=== PATIENT | male | born 1945 | race Caucasian/White ===

== ENCOUNTER 2019-09-05 06:02 | Inpatient (IN) ==
[2019-09-03 15:49] LABS: Appearance,Urine CLEAR; Bilirubin,Urine NEG (NEG); Color,Urine YELLOW; Culture Indicated,Urine NO; Glucose,Urine (UA) NEGATIVE (NEG); Ketones,Urine 5/TR mg/dL (NEG); Leukocyte Esterase,Urine NEG /uL (NEG); Nitrate,Urine NEG (NEG); Protein,Urine NEG (NEG); Specific Gravity,Urine 1.031 (1.000-1.035); Urine Blood NEG mg/dL (<0.03); Urobilinogen,Urine NEG (NEG)
[2019-09-03 18:35] LABS: Basophils # (Auto) 0 K/mcL (0.0-0.3); Basophils % (Auto) 0.5 % (0.0-2.0); Eosinophils # (Auto) 0.2 K/mcL (0.0-0.7); Eosinophils % (Auto) 3.5 % (0.0-7.0); Granulocytes % (Auto) 70.8 % (38.0-78.0); Hematocrit 44.4 % (41.0-55.0); Hemoglobin 14.5 g/dL (13.5-16.5); Lymphocytes # (Auto) 1.1 K/mcL (1.5-4.8); Lymphocytes % (Auto) 18.3 % (15.5-49.0); Mean Cell Volume 95.5 fL (80.0-100.0); Mean Corpuscular HGB Conc 32.6 g/dL (31.0-36.0); Mean Platelet Volume 8.6 fL (7.4-10.4); Monocytes # (Auto) 0.4 K/mcL (0.1-0.9); Monocytes % (Auto) 6.9 % (1.0-12.0); Platelet Count 271 K/mcL (140-440); RBC 4.65 M/mcL (4.50-5.90)
[2019-09-03 18:42] LABS: INR 0.9 (0.9-1.1); Prothrombin Time 12.2 sec (11.9-14.5)
[2019-09-03 19:16] LABS: Blood Urea Nitrogen 29 mg/dl (8-23); Calcium 9.5 mg/dl (8.6-10.4); Carbon Dioxide 26 mmol/L (22-30); Chloride 103 mmol/L (96-108); Glomerular Filtration Rate 89; Glucose 82 mg/dL (70-105)
[~2019-09-05 06:02] MED LIST: CELECOXIB 200 MG CAPSULE PO SCH; PREGABALIN 75 MG CAPSULE PO SCH; ceFAZolin 2 GM in DEXTROSE 5% IN WATER 50 ML IV SCH; oxyCODONE 10 MG TAB.ER.12H PO SCH
[2019-09-05] MEDS ORDERED: DEXAMETHASONE 10 MG/ML VIAL IV ONE (09:30)
[2019-09-05] MEDS ORDERED: LIDOCAINE HCL/PF 100 MG/5 ML SYRINGE IV ONE (09:30)
[2019-09-05] MEDS ORDERED: MIDAZOLAM 5 MG/5 ML VIAL IV ONE (09:30)
[2019-09-05] MEDS ORDERED: ePHEDrine 50 MG/ML AMPUL IV ONE (09:30)
[2019-09-05] MEDS ORDERED: SUCCINYLCHOLINE 20 MG/ML ML IV ONE (09:30)
[2019-09-05] MEDS ORDERED: PROPOFOL 200 MG/20 ML VIAL IV ONE (09:30)
[2019-09-05] MEDS ORDERED: ONDANSETRON 4 MG/2 ML VIAL IV ONE (09:30)
[2019-09-05] MEDS ORDERED: ESMOLOL 100 MG/10 ML VIAL IV ONE (09:30)
[2019-09-05] MEDS ORDERED: TRANEXAMIC ACID 1,000 MG/10 ML VIAL IV ONE ×3 (09:30→11:57)
[2019-09-05] MEDS ORDERED: PHENYLEPHRINE 10 MG/ML VIAL IV ONE (09:30)
[2019-09-05] MEDS ORDERED: IPRATROPIUM/ALBUTEROL 3 ML AMPUL.NEB NEB PRN (10:46)
[2019-09-05] MEDS ORDERED: HYDROmorphone 2 MG/ML VIAL IV PRN (10:46)
[2019-09-05] MEDS ORDERED: ePHEDrine 50 MG/ML AMPUL IV PRN (10:46)
[2019-09-05] MEDS ORDERED: METHOCARBAMOL 1,000 MG/10 ML VIAL IV PRN (10:46)
[2019-09-05] MEDS ORDERED: ATROPINE SULFATE 0.4 MG/ML VIAL IV PRN (10:46)
[2019-09-05] MEDS ORDERED: MEPERIDINE 25 MG/ML SYRINGE IV PRN (10:46)
[2019-09-05] MEDS ORDERED: METOPROLOL TARTRATE 5 MG/5 ML VIAL IV PRN (10:46)
[2019-09-05] MEDS ORDERED: ONDANSETRON 4 MG/2 ML VIAL IV PRN ×2 (10:46→11:04)
[2019-09-05] MEDS ORDERED: fentaNYL 100 MCG/2 ML VIAL IV PRN (10:46)
[2019-09-05] MEDS ORDERED: diphenhydrAMINE 50 MG/ML VIAL IV PRN (10:46)
[2019-09-05] MEDS ORDERED: PROMETHAZINE 25 MG/ML VIAL IV PRN (10:46)
[2019-09-05] MEDS ORDERED: NALOXONE HCL 0.4 MG/ML VIAL IV PRN (10:46)
[2019-09-05] MEDS ORDERED: FLUMAZENIL 0.1 MG/ML ML IV PRN (10:46)
[2019-09-05] MEDS ORDERED: ACETAMINOPHEN 1,000 MG/100 ML BOTTLE IV ONE (10:46)
[2019-09-05] MEDS ORDERED: LACTATED RINGERS 1,000 ML IV SCH (11:00)
[2019-09-05] MEDS ORDERED: BISACODYL 10 MG SUPP.RECT PR PRN (11:04)
[2019-09-05] MEDS ORDERED: BENZOCAINE/MENTHOL 1 LOZENGE PO PRN (11:04)
[2019-09-05] MEDS ORDERED: MAGNESIUM HYDROXIDE 30 ML ORAL.SUSP PO PRN (11:04)
[2019-09-05] MEDS ORDERED: KETOROLAC 15 MG/ML VIAL IV PRN (11:04)
[2019-09-05] MEDS ORDERED: POLYETHYLENE GLYCOL 3350 17 GM PACKET PO PRN (11:04)
[2019-09-05] MEDS ORDERED: FLEETS ADULT ENEMA PR PRN (11:04)
--- NOTE | 2019-09-05 11:04 | Brief Operative Note ---
Date of procedure: 09/05/19 Pre-op diagnosis: Right hip DJD Post-op diagnosis: same Procedure: Right anterior total hip arthroplasty Grafts/Implants: Yes (Depuy Actis 11 HO stem, +1.5 36 delta head, 58 cup, neutral altrx liner) Anesthesia: spinal, GLMA Findings: severe arthritis Complications: none Surgeon: Chandu Pollock Leaded Glass Installer: James Sherman Estimated blood loss (cc): 350 Specimens Removed/Pathology: none sent Condition: stable Disposition: PACU
[2019-09-05] MEDS ORDERED: CARBIDOPA/LEVODOPA 25/100 TABLET PO PRN (11:07)
[2019-09-05] MEDS ORDERED: DOCUSATE SODIUM 100 MG CAPSULE PO PRN (11:07)
[2019-09-05] MEDS ORDERED: DEXTROSE 31 GM ORAL.SUSP PO PRN (11:08)
[2019-09-05] MEDS ORDERED: DEXTROSE 50% 50 ML VIAL IV PRN (11:08)
--- NOTE | 2019-09-05 11:43 | Operative Note ---
DATE OF OPERATION: 09/05/2019 PREOPERATIVE DIAGNOSIS: Right hip severe osteoarthritis. POSTOPERATIVE DIAGNOSIS: Right hip severe osteoarthritis. PROCEDURE PERFORMED: Right anterior total hip arthroplasty placing a DePuy Actis size 11 high offset femoral stem; a +1.5, 36 mm delta ceramic head ball; a 58 [place] cup with a neutral AltrX liner. SURGEON: Chandu Pollock M.D. RECREATIONAL THERAPY AIDE: Lencho Sherman PA-C. The PA's assistance was required for the safe and efficient completion of the entire case. This provider's expertise and technical skill were required throughout the case. The PA assisted with preoperative coordination, intraoperative retraction, wound closure, dressing and splint application, as well as postoperative documentation and care coordination. ANESTHESIA: Spinal plus general. DRAINS: None. SPECIMENS: Femoral head and reamings which were discarded. BLOOD LOSS: 350 mL. COMPLICATIONS: None. POSTOPERATIVE CONDITION: Stable. INDICATIONS FOR SURGERY: This is a 74-year-old male who has had longstanding, progressive worsening right hip pain. Radiographs showed severe [id number] osteoarthritis. FINDINGS AT SURGERY: Severe arthritis. Post implantation resulted in equal leg lengths from preop and minimal 2 to 3 mm increased offset. PROCEDURE IN DETAIL: The patient had been seen preoperatively and informed consent had been obtained after discussion of risks and benefits of surgery. Risks including, but not limited to, bleeding; infection, possibly requiring implant removal and prolonged IV antibiotics; injury to nerves, blood vessels, and other surrounding structures; at particular risk, the lateral femoral cutaneous nerve possibly resulting in lateral thigh numbness, this being significantly increased in him since he had this with his prior hip surgery on the other side; anesthetic risks; incomplete or no resolution of symptoms; leg length discrepancy; dislocation; fracture; DVT and pulmonary embolus risks; and the possibility of needing further revision joint surgery. He understood these risks and wished to proceed. Correct operative site was marked and then patient was given spinal anesthesia. He was then taken to the operating room and LMA general given. He was carefully positioned on the fracture table, and the right hip and groin were carefully prepped and draped in normal sterile fashion. Time out was performed verifying patient name, operative site, and plan. Ioban was used to cover all skin surfaces, and a standard anterior approach incision was made with a scalpel through skin and subcutaneous tissue. Hemostasis was obtained with Bovie cautery. We carefully bluntly dissected down onto tensor fascia and then undermined circumferentially. Irrisept was irrigated and a ring retractor placed. There was a small branch of the lateral femoral cutaneous nerve coming out of the tensor fascia. This was carefully dissected so it could be mobilized, and then we incised the tensor fascia up to the nerve and then proximal to the nerve. We then carefully bluntly dissected medial to the muscle belly. Blunt cobra retractors were placed on the superior and inferior neck, and circumflex vessels were coagulated and cut and an anterior capsulectomy performed. Capsule releases were done to the trochanters. Fluoroscopy had been taken prior to incision so JointPoint could be used to identify preoperative leg length and landmarks. We then placed a corkscrew in the femoral head. Osteotome was used under fluoro to identify our approximate neck cut trajectory and then oscillating tip saw was used to make our osteotomy. Femoral head was removed and the acetabulum exposed. Labrum was excised circumferentially, as well as soft tissue from the floor. Irrisept was irrigated in the acetabulum and then we began reaming. We sequentially reamed up into a 57 reamer, and this was medialized all the way to the teardrop. We then opened a 58 three-hole [place] cup. The acetabulum was irrigated with Irrisept again, after a minute pulse lavaged with saline, and then the cup was impacted using the [id number] and JointPoint guidance. We ended up with a cup at about 43 degrees of inclination and about 32 degrees of anteversion. We did get excellent press-fit, so a center hole cover was placed. A neutral AltrX liner was carefully aligned and impacted. He had large anterior impinging osteophyte, so this was removed with a curved osteotome and rongeur. We then externally rotated the leg maximally and released capsule around the medial and posterior neck. Traction was verified to be removed from the leg and it was extended and adducted. Capsule was released out to the greater trochanter with Bovie and then once adequate exposure obtained, a box osteotome was used to gain canal entry. An awl was used to identify canal trajectory. Rongeur and rasp were used to lateralize. We then sequentially broached with the [id number] and the Actis broaches up to a size 10 which seated right at our neck cut. We went ahead and did a trial with a high offset neck and a +5 head ball. JointPoint was used with fluoro to identify, and it appeared our offset was significantly increased and our leg length was decreased, so we redislocated. I ended up going up to a size 11 broach and having this sit above our neck cut, so we removed the 11 broach. An 11 high offset stem was opened. The femoral canal was irrigated with Irrisept. After a minute we pulse lavaged with saline and then the 11 stem was impacted with the [id number]. The collar did seat about 3 mm above our prior neck cut. We then opened a +1.5 head ball, which according to the JointPoint would leave us with minimal offset increase and leg length equal, so we carefully cleaned and dried the stem and then the head ball was impacted. Hip was reduced without excessive tension. Final fluoro images were taken and saved. We irrigated with Irrisept, after a minute we pulse lavaged with saline, and then #1 Vicryl running stitch was used to close tensor fascia. We carefully made sure that the suture went underneath the nerve as it pierced through the fascia so it would not be caught in the suture line, and then Irrisept was irrigated, after a minute pulse lavage, and then the fat was tacked to fascia. A 2-0 Monocryl was used for subcutaneous and rafal for skin. Xeroform and sterile dressing were applied. The patient was awakened, extubated, and transferred to recovery in stable condition. KIMBERLEY:juana Job ID: [id number] Doc ID: [id number] Chandu Pollock MD
[2019-09-05] MEDS ORDERED: Nebivolol Hcl [Bystolic] 10 MG Tablet PO SCH (12:00)
--- NOTE | 2019-09-05 12:06 | XRay Report ---
CLINICAL INFORMATION: Post-op Total Hip COMPARISON: Preoperative films 07/26/2019 FINDINGS: Right total hip prostheses is anatomically aligned. The older left total hip prostheses are also anatomically aligned without loosening or infection. No osseous abnormality. Soft tissue swelling over the surgical site seen - as expected IMPRESSION: Bilateral total hip prostheses in anatomic alignment. No complication Interpreted and Authenticated by: Tutu Skelton 09/05/19
[2019-09-05] MEDS: 0.9 % SODIUM CHLORIDE 1,000 ML IV SCH ×2 (12:12→20:18)
[2019-09-05] MEDS: INSULIN LISPRO 1 UNIT/0.01 ML UNIT SQ SCH ×3 (12:17→21:59)
[2019-09-05] MEDS: HYDROCODONE/APAP 7.5/325MG TABLET PO PRN ×3 (12:38→20:59)
[2019-09-05] MEDS: CARBIDOPA/LEVODOPA CR 25/100 TABLET PO SCH ×2 (12:44→17:31)
--- NOTE | 2019-09-05 14:03 | XRay Report ---
CLINICAL INFORMATION: right total hip arthroplasty COMPARISON: None. FINDINGS: Multiple digital images from the OR submitted. Final image shows right total hip prostheses anatomically aligned. No osseous abnormality. Soft tissue swelling seen as expected IMPRESSION: Negative Interpreted and Authenticated by: Tutu Skelton 09/05/19
[2019-09-05] MEDS: AMANTADINE HCL 100 MG CAPSULE PO SCH ×3 (14:36→21:39)
[2019-09-05] MEDS: PRAMIPEXOLE 0.25 MG TABLET PO SCH ×2 (14:36→21:39)
[2019-09-05] MEDS: 0.9 % SODIUM CHLORIDE 10 ML SYRINGE IV SCH ×2 (14:37→22:02)
[2019-09-05] MEDS: ceFAZolin 1 GM VIAL IV SCH (17:31)
[2019-09-05] MEDS ORDERED: metFORMIN 500 MG TAB.XL.24H PO SCH (18:00)
[2019-09-05] MEDS ORDERED: SENNOSIDES 1 TABLET PO SCH (21:00)
[2019-09-05] MEDS ORDERED: ZOLPIDEM 5 MG TABLET PO SCH (21:00)
[2019-09-05] MEDS: DOCUSATE SODIUM 100 MG CAPSULE PO SCH (21:38)
[2019-09-05] MEDS: ASPIRIN 81 MG TAB.CHEW PO SCH (21:38)
[2019-09-06] MEDS: ceFAZolin 1 GM VIAL IV SCH (00:58)
[2019-09-06] MEDS: HYDROCODONE/APAP 7.5/325MG TABLET PO PRN ×3 (01:17→09:37)
[2019-09-06] MEDS: 0.9 % SODIUM CHLORIDE 1,000 ML IV SCH (03:15)
[2019-09-06] MEDS ORDERED: metFORMIN 500 MG TAB.XL.24H PO SCH (06:00)
[2019-09-06] MEDS: CARBIDOPA/LEVODOPA CR 25/100 TABLET PO SCH (06:08)
[2019-09-06] MEDS: 0.9 % SODIUM CHLORIDE 10 ML SYRINGE IV SCH (06:08)
[2019-09-06] MEDS: INSULIN LISPRO 1 UNIT/0.01 ML UNIT SQ SCH (07:22)
--- NOTE | 2019-09-06 08:01 | Discharge Summary ---
Ortho Discharge - [facility] - Patient Instructions Diet: Consistent Carbohydrate Activity: weight bearing as tolerated Total Hip Protocol: Follow activity instructions as provided by Physical Therapy. Dressing Care: Aquacel Ag - leave on for 5 days Additional Instructions: Discharge Instructions: Do the exercises at home that physical therapy gave you. Weight bearing as tolerated. Wear comfortable clothing for physical therapy. You are scheduled to start physical therapy at [facility]([phone]) on Sep.10 at 9:30 am, please arrive 30 minutes early for paperwork. Take your prescription, photo ID, insurance cards, and current medication list with you to your first physical therapy appointment. Take your prescription to pickling drum operator any medication or equipment (such as walker, crutches, toilet riser or C.P.M.) Wear comfortable clothing for your physical therapy. If you have the Aquacel Ag dressing, leave in place for 7 days then remove. Remove the dressing by . If dressing becomes soiled (turns black), remove and use gauze 4x4 dressing and antimicrobial silver ointment ([id number]) and change daily. You may shower with dressing on, pat dry after shower. If you have Dermabond (a dressing with a mesh-like appearance), DO NOT remove mesh. Cover site daily with gauze dressing. You may start showering on post op day #2. The Dermabond dressing can get wet. Do not scrub dressing. Pat dry, then place new dry gauze and rewrap with DAVID dressing. To avoid constipation while taking any narcotic pain medication, take an over the counter stool softener/laxative. Use your Cryocuff or ice packs as directed, on for 20 minutes at a time, throughout the day. Ice and elevation will help with pain and swelling. Call your physician for fevers above 100.5 or pain not controlled by medication. Your prescriptions are with your discharge information. Some medications were electronically transmitted to your pharmacy of choice. Take Aspirin as prescribed to prevent blood clots (see medication list). - Follow Up Plan Disposition: Home, Self-Care Prognosis: Good Rehab Potential: Good - Orders For Discharge Prescriptions: Aspirin [Adult Low Dose Aspirin EC] 81 mg PO BID #60 tablet. Transmission Status: Pending to [facility] [place], HYDROcodone/APAP 10/325MG [B[place]l 10-325Mg] 1 - 2 tab PO Q4H PRN #75 tab PRN Reason: Pain Prescription Printed Additional Discharge Orders: Physical Therapy at Discharge - General Location: None Selected Walker Location: None Selected
[2019-09-06] MEDS: PRAMIPEXOLE 0.25 MG TABLET PO SCH (08:41)
[2019-09-06] MEDS: DOCUSATE SODIUM 100 MG CAPSULE PO SCH (08:42)
[2019-09-06] MEDS: ASPIRIN 81 MG TAB.CHEW PO SCH (08:42)
[2019-09-06] MEDS: AMANTADINE HCL 100 MG CAPSULE PO SCH (08:50)
== END 2019-09-06 09:50 | disposition home or self-care (01) | DRG 470 ==
LOC: MEDSUR 06:02
PROVIDERS: ADMIT Orthopaedic Surgery; ATTEND Orthopaedic Surgery